=== PATIENT | male | born 1980 | race Caucasian/White ===

== ENCOUNTER → 2017-07-21 | Outpatient (CLI) | payer OTHER ==
[~2017-07-21] MED LIST: ALBU90OI INH; AMOX875 PO; Atrovent Inha12.9 GM INH; Augmentin 875-1 EACH PO; CLIN300 PO; Crutch1 EACH MISC; Flonase 0.05% N16 GM; LEVO750 PO; Zithromax250 MG PO; Zofran Odt4 MG SL
== END ==
LOC: LAB EV 12:34
DX: R21 Rash and other nonspecific skin eruption (principal)
CPT/HCPCS: 87102